=== PATIENT | male | born 1955 | race Caucasian/White ===

== ENCOUNTER 2025-01-24 16:53 | Inpatient (IN) | payer MEDICARE ==
[~2025-01-24] VITALS: Ht 172.7 cm; Wt 78.6 kg
[2025-01-24 18:43] LABS: BASOPHILS % (AUTO) 0.2 % (0-1); EOSINOPHILS % (AUTO) 0.6 % (0-6); HEMATOCRIT 45.4 % (42.0-52.0); HEMOGLOBIN 15.5 g/dl (14.0-17.9); LYMPHOCYTES # (AUTO) 0.6 X10'3 (1.1-4.8); LYMPHOCYTES % (AUTO) 9.1 % (21-51); MEAN CORPUSCULAR HEMOGLOBIN 30.1 PG (27.0-31.0); MEAN CORPUSCULAR HGB CONC 34.3 g/dL (33.0-36.5); MEAN CORPUSCULAR VOLUME 87.8 FL (78-98); MEAN PLATELET VOLUME 8.8 FL (7.4-10.4); MONOCYTES # (AUTO) 0.9 X10'3 (0-0.9); MONOCYTES % (AUTO) 14.2 % (2-12); NEUTROPHILS # (AUTO) 5.1 X10'3 (1.8-7.7); NEUTROPHILS % (AUTO) 75.9 % (42-75); PLATELET COUNT 132 X10'3 (140-440); RED BLOOD COUNT 5.16 X10'6 (4.70-6.10); RED CELL DISTRIBUTION WIDTH 14.8 % (11.5-14.5); WHITE BLOOD COUNT 6.7 X10'3 (4.5-11.0)
[2025-01-24 18:54] LABS: ALANINE AMINOTRANSFERASE 191 U/L (12-78); ALKALINE PHOSPHATASE 117 IU/L (46-116); ANION GAP 7 (8-16); ASPARTATE AMINO TRANSFERASE 100 U/L (10-37); BILIRUBIN,TOTAL 13.1 MG/DL (0.1-1.0); BLOOD UREA NITROGEN 13 MG/DL (7-18); BUN/CREATININE RATIO 13.7 (10.0-20.0); CALCIUM 8.6 MG/DL (8.5-10.1); CHLORIDE 107 MMOL/L (99-107); CREATININE 0.95 MG/DL (0.60-1.10); GLUCOSE 104 MG/DL (70-104); LIPASE 48 U/L (16-77); SODIUM 143 MMOL/L (135-145); TOTAL CARBON DIOXIDE 28.8 MMOL/L (24-32); eCRCL 69 ML/MIN; eGFR 79 ML/MIN
[2025-01-24 18:56] LABS: POTASSIUM 3.5 MMOL/L (3.5-5.1)
[2025-01-24] MEDS ORDERED: magnesium Cl slow-release 64mg tablet PO PRN (19:35)
[2025-01-24] MEDS ORDERED: HYDROmorphone inj. 0.5 MG/0.5 ML DISP.SYRIN IV PRN (19:35)
[2025-01-24] MEDS ORDERED: magnesium sulf-water 4G/100mL 100 ML IV PRN (19:35)
[2025-01-24] MEDS ORDERED: magnesium hydroxide 30ml (MOM) UD suspension PO PRN (19:35)
[2025-01-24] MEDS ORDERED: morphine 2 MG/ML inj. syringe IV PRN ×2 (19:35)
[2025-01-24] MEDS ORDERED: potassium Cl 40MEQ/1/2NS 520ml 520 ML IV PRN (19:35)
[2025-01-24] MEDS ORDERED: acetaminophen 325mg tablet PO PRN (19:35)
[2025-01-24] MEDS ORDERED: magnesium sulf-water 2g/50mL 50 ML IV PRN (19:35)
[2025-01-24] MEDS ORDERED: HYDROcodone/acetaminophen 5mg/325mg tablet PO PRN (19:35)
[2025-01-24] MEDS ORDERED: mag hydrox/Alum hydrox/simeth 30ml oral suspension PO PRN (19:35)
[2025-01-24] MEDS ORDERED: HYDROcodone/acetaminophen 10/325mg tab PO PRN (19:35)
[2025-01-24] MEDS ORDERED: bisacodyl 10mg suppository rectal RC PRN (19:35)
[2025-01-24] MEDS ORDERED: potassium Cl 20 mEq SR tablet PO PRN (19:35)
[2025-01-24] MEDS ORDERED: ESOM40CA66 PO (19:39)
[2025-01-24] MEDS ORDERED: FENO145T38 PO (19:39)
[2025-01-24] MEDS ORDERED: ATEN-169 PO (19:39)
[2025-01-24] MEDS ORDERED: LOSA50TA64 PO (19:39)
[2025-01-24 19:58] LABS: APTT 26 SECONDS (22-32); INR 1.3 INR; PROTHROMBIN TIME 13.1 SECONDS (9.0-12.0)
[2025-01-24] MEDS: docusate sod 100mg capsule PO SCH (20:00)
[2025-01-24] MEDS: heparin, porcine 5000 units/ml vial SQ SCH (20:00)
[2025-01-24] MEDS: K and/or MAG REPLACEMENT MC SCH (20:00)
[2025-01-24 20:05] LABS: PRO BRAIN NATRIURETIC PEPTIDE 655 PG/ML (0-125)
[2025-01-24] MEDS: normal saline 1000ml 1,000 ML IV SCH (22:15)
[2025-01-24 23:20] VITALS: BP 129/99; PULSE 68; RESP 18; TEMP 97.8; O2SAT 97
[2025-01-25] VITALS (17 sets, daily range): BP systolic 117–147; BP diastolic 61–79; PULSE 50–69; RESP 10–20; TEMP 97.5–98.1; O2SAT 92–98
[2025-01-25 06:50] LABS: BASOPHILS % (AUTO) 0.5 % (0-1); EOSINOPHILS # (AUTO) 0.1 X10'3 (0-0.9); EOSINOPHILS % (AUTO) 2.2 % (0-6); HEMATOCRIT 40.4 % (42.0-52.0); HEMOGLOBIN 13.8 g/dl (14.0-17.9); LYMPHOCYTES # (AUTO) 0.5 X10'3 (1.1-4.8); LYMPHOCYTES % (AUTO) 9.7 % (21-51); MEAN CORPUSCULAR HEMOGLOBIN 30.1 PG (27.0-31.0); MEAN CORPUSCULAR HGB CONC 34.3 g/dL (33.0-36.5); MEAN CORPUSCULAR VOLUME 87.9 FL (78-98); MEAN PLATELET VOLUME 9.2 FL (7.4-10.4); MONOCYTES # (AUTO) 0.9 X10'3 (0-0.9); MONOCYTES % (AUTO) 16.9 % (2-12); NEUTROPHILS % (AUTO) 70.7 % (42-75); PLATELET COUNT 123 X10'3 (140-440); RED BLOOD COUNT 4.59 X10'6 (4.70-6.10); RED CELL DISTRIBUTION WIDTH 14.5 % (11.5-14.5); WHITE BLOOD COUNT 5.6 X10'3 (4.5-11.0)
[2025-01-25 07:41] LABS: ALANINE AMINOTRANSFERASE 153 U/L (12-78); ALBUMIN 2.7 G/DL (3.4-5.0); ALKALINE PHOSPHATASE 108 IU/L (46-116); ANION GAP 12 (8-16); ASPARTATE AMINO TRANSFERASE 78 U/L (10-37); BILIRUBIN,TOTAL 11.4 MG/DL (0.1-1.0); BLOOD UREA NITROGEN 15 MG/DL (7-18); BUN/CREATININE RATIO 18.1 (10.0-20.0); CALCIUM 8.2 MG/DL (8.5-10.1); CHLORIDE 110 MMOL/L (99-107); CREATININE 0.83 MG/DL (0.60-1.10); GLUCOSE 92 MG/DL (70-104); HDL CHOLESTEROL 13 MG/DL (35-60); LDL CHOLESTEROL 69 MG/DL (50-100); MAGNESIUM 1.8 MG/DL (1.5-2.4); SODIUM 147 MMOL/L (135-145); TOTAL CARBON DIOXIDE 25.2 MMOL/L (24-32); eCRCL 81 ML/MIN; eGFR > 90 ML/MIN
[2025-01-25 07:50] LABS: ALBUMIN/GLOBULIN RATIO 1.2 (1.1-1.5); BILIRUBIN,DIRECT 9.5 MG/DL (0-0.3); CHOLESTEROL 117 MG/DL (0-200); POTASSIUM 3.4 MMOL/L (3.5-5.1); TOTAL PROTEIN 4.9 G/DL (6.4-8.2); TRIGLYCERIDES 220 MG/DL (20-135)
[2025-01-25] MEDS: losartan 50mg tablet PO SCH ×2 (08:00→22:01)
[2025-01-25 08:45] LABS: TOTAL CELLS COUNTED 100
[2025-01-25 08:46] LABS: PLATELET ESTIMATE NORMAL
[2025-01-25] MEDS: CefTRIAXone/D5W-Rocephin 1gm 50 ML IV SCH (09:43)
[2025-01-25] MEDS: atenolol 50mg tablet PO SCH (09:44)
[2025-01-25] MEDS: fenofibrate 145mg tablet PO SCH (09:45)
[2025-01-25] MEDS: pantoprazole 40mg Tablet.DR PO SCH (09:45)
[2025-01-25] MEDS: potassium Cl 20 mEq SR tablet PO PRN (11:27)
[2025-01-25] MEDS ORDERED: iohexol 300mg/ml 100ml inj. ONE (14:09)
[2025-01-25] MEDS ORDERED: glucagon, human recombinant 1mg kit ONE (14:09)
[2025-01-25] MEDS ORDERED: LIDOcaine 2% Viscous 15ml cup ONE (14:09)
[2025-01-25] MEDS ORDERED: fentaNYL/PF 50MCG/1 ML 2ML syringe ONE ×2 (17:56→18:54)
[2025-01-25] MEDS ORDERED: MIDAZolam 1 MG/ML 5ML VIAL ONE (17:57)
[2025-01-26] VITALS (7 sets, daily range): BP systolic 104–128; BP diastolic 51–69; PULSE 44–65; RESP 12–18; TEMP 97.4–98.1; O2SAT 96–99
[2025-01-26 06:19] LABS: BASOPHILS % (AUTO) 0.3 % (0-1); EOSINOPHILS # (AUTO) 0.1 X10'3 (0-0.9); EOSINOPHILS % (AUTO) 1.1 % (0-6); HEMATOCRIT 37.9 % (42.0-52.0); HEMOGLOBIN 12.9 g/dl (14.0-17.9); LYMPHOCYTES # (AUTO) 0.7 X10'3 (1.1-4.8); LYMPHOCYTES % (AUTO) 12.3 % (21-51); MEAN CORPUSCULAR HEMOGLOBIN 30.1 PG (27.0-31.0); MEAN CORPUSCULAR VOLUME 88.3 FL (78-98); MONOCYTES # (AUTO) 0.8 X10'3 (0-0.9); NEUTROPHILS # (AUTO) 4.3 X10'3 (1.8-7.7); NEUTROPHILS % (AUTO) 73.3 % (42-75); PLATELET COUNT 128 X10'3 (140-440); RED BLOOD COUNT 4.29 X10'6 (4.70-6.10); WHITE BLOOD COUNT 5.8 X10'3 (4.5-11.0)
[2025-01-26 06:58] LABS: ALANINE AMINOTRANSFERASE 140 U/L (12-78); ALBUMIN 2.3 G/DL (3.4-5.0); ALKALINE PHOSPHATASE 117 IU/L (46-116); ANION GAP 9 (8-16); ASPARTATE AMINO TRANSFERASE 97 U/L (10-37); BILIRUBIN,TOTAL 9.2 MG/DL (0.1-1.0); BLOOD UREA NITROGEN 18 MG/DL (7-18); BUN/CREATININE RATIO 18.9 (10.0-20.0); CALCIUM 8.2 MG/DL (8.5-10.1); CHLORIDE 110 MMOL/L (99-107); CREATININE 0.95 MG/DL (0.60-1.10); GLUCOSE 109 MG/DL (70-104); MAGNESIUM 1.8 MG/DL (1.5-2.4); SODIUM 144 MMOL/L (135-145); TOTAL CARBON DIOXIDE 24.9 MMOL/L (24-32); eCRCL 71 ML/MIN; eGFR 79 ML/MIN
[2025-01-26 07:04] LABS: ALBUMIN/GLOBULIN RATIO 0.9 (1.1-1.5); POTASSIUM 3.8 MMOL/L (3.5-5.1)
[2025-01-26] MEDS: piperacillin/tazo 4.5gm/100ml 100 ML IV SCH (15:55)
[2025-01-26] MEDS: heparin, porcine 5000 units/ml vial SQ SCH (20:44)
[2025-01-27] VITALS (30 sets, daily range): BP systolic 115–184; BP diastolic 65–96; PULSE 49–98; RESP 12–26; TEMP 97.4–98.3; O2SAT 92–100
[2025-01-27 06:56] LABS: BASOPHILS % (AUTO) 0.5 % (0-1); EOSINOPHILS # (AUTO) 0.1 X10'3 (0-0.9); EOSINOPHILS % (AUTO) 0.6 % (0-6); HEMATOCRIT 38.5 % (42.0-52.0); HEMOGLOBIN 13.3 g/dl (14.0-17.9); LYMPHOCYTES # (AUTO) 0.7 X10'3 (1.1-4.8); LYMPHOCYTES % (AUTO) 8.3 % (21-51); MEAN CORPUSCULAR HEMOGLOBIN 30.1 PG (27.0-31.0); MEAN CORPUSCULAR HGB CONC 34.7 g/dL (33.0-36.5); MEAN PLATELET VOLUME 9.1 FL (7.4-10.4); MONOCYTES # (AUTO) 0.9 X10'3 (0-0.9); MONOCYTES % (AUTO) 10.6 % (2-12); NEUTROPHILS # (AUTO) 6.7 X10'3 (1.8-7.7); PLATELET COUNT 162 X10'3 (140-440); RED BLOOD COUNT 4.42 X10'6 (4.70-6.10); RED CELL DISTRIBUTION WIDTH 14.8 % (11.5-14.5); WHITE BLOOD COUNT 8.3 X10'3 (4.5-11.0)
[2025-01-27 07:06] LABS: ALANINE AMINOTRANSFERASE 169 U/L (12-78); ALBUMIN 2.5 G/DL (3.4-5.0); ALKALINE PHOSPHATASE 138 IU/L (46-116); ANION GAP 11 (8-16); ASPARTATE AMINO TRANSFERASE 142 U/L (10-37); BILIRUBIN,TOTAL 14.7 MG/DL (0.1-1.0); BLOOD UREA NITROGEN 12 MG/DL (7-18); BUN/CREATININE RATIO 14.5 (10.0-20.0); CALCIUM 8.2 MG/DL (8.5-10.1); CHLORIDE 106 MMOL/L (99-107); CREATININE 0.83 MG/DL (0.60-1.10); GLUCOSE 109 MG/DL (70-104); MAGNESIUM 1.5 MG/DL (1.5-2.4); SODIUM 139 MMOL/L (135-145); TOTAL CARBON DIOXIDE 21.9 MMOL/L (24-32); eCRCL 81 ML/MIN; eGFR > 90 ML/MIN
[2025-01-27 07:17] LABS: ALBUMIN/GLOBULIN RATIO 0.9 (1.1-1.5); POTASSIUM 3.4 MMOL/L (3.5-5.1); TOTAL PROTEIN 5.3 G/DL (6.4-8.2)
[2025-01-27] MEDS ORDERED: TEST50AU SUBCUT (08:01)
[2025-01-27] MEDS: ondansetron/PF 4mg/2ml inj IV PRN (09:02)
[2025-01-27] MEDS ORDERED: iohexol 300 MG/1 ML 50ml polymer ONE (13:55)
[2025-01-27] MEDS ORDERED: glucagon, human recombinant 1mg kit ONE (13:55)
[2025-01-27] MEDS ORDERED: iohexol 300mg/ml 100ml inj. ONE (13:56)
[2025-01-27] MEDS ORDERED: meperidine/PF 25mg/ml syringe IV PRN ×4 (15:10→17:05)
[2025-01-27] MEDS ORDERED: morphine 4 MG/ML inj SYRINge IV PRN ×2 (15:10→17:05)
[2025-01-27] MEDS ORDERED: ondansetron/PF 4mg/2ml inj IV PRN ×2 (15:10→17:05)
[2025-01-27] MEDS ORDERED: HYDROmorphone/PF 0.2 MG/ML SYRINGE IV PRN ×2 (15:10)
[2025-01-27] MEDS ORDERED: propofol inj 20 ML IV ONE (15:17)
[2025-01-27] MEDS ORDERED: rocuronium 10mg/ml inj IV ONE (15:19)
[2025-01-27] MEDS ORDERED: sevoflurane 250ml liquid IH ONE (16:05)
[2025-01-27] MEDS ORDERED: fentaNYL/PF 50MCG/1 ML 2ML syringe ONE (16:06)
[2025-01-27] MEDS ORDERED: midazolam 1 mg/ML 2ml injection ONE (16:06)
[2025-01-27] MEDS ORDERED: dexamethasone sod phosphate 4mg/ml inj. ONE (17:02)
[2025-01-27] MEDS ORDERED: ondansetron/PF 4mg/2ml inj ONE (17:02)
[2025-01-27] MEDS ORDERED: ringers solution, lacted 1,000 ML IV SCH (17:05)
[2025-01-27] MEDS ORDERED: morphine 2 MG/ML inj. syringe IV PRN (17:05)
[2025-01-27] MEDS ORDERED: proCHLORperazine 10 MG/2 ml inj IV PRN (17:05)
[2025-01-27] MEDS ORDERED: enalaprilat 1.25mg/ml 2ml vial IV PRN (17:05)
[2025-01-27] MEDS ORDERED: labetalol 20mg/4ml (5mg/ml) syringe IV PRN (17:05)
[2025-01-27] MEDS ORDERED: glycopyrrolate 0.2mg/ml inj ONE (17:45)
[2025-01-27] MEDS: ipratropium/albuterol 3ml nebule NEB ONE (18:20)
[2025-01-27] MEDS: morphine 2 MG/ML inj. syringe IV PRN (18:32)
[2025-01-27] MEDS: racepinephrine 11.25mg/0.5ml nebule IH ONE (18:35)
[2025-01-27] MEDS: labetalol 20mg/4ml (5mg/ml) syringe IV PRN (18:54)
[2025-01-27] MEDS: ringers solution, lacted 1,000 ML IV SCH (21:39)
[2025-01-28 02:00] VITALS: BP 139/79; PULSE 70; RESP 20; TEMP 98.3; O2SAT 95
[2025-01-28 06:19] LABS: BASOPHILS % (AUTO) 0.5 % (0-1); EOSINOPHILS % (AUTO) 0 % (0-6); HEMATOCRIT 36.9 % (42.0-52.0); HEMOGLOBIN 12.7 g/dl (14.0-17.9); LYMPHOCYTES # (AUTO) 0.8 X10'3 (1.1-4.8); LYMPHOCYTES % (AUTO) 8.6 % (21-51); MEAN CORPUSCULAR HEMOGLOBIN 30.2 PG (27.0-31.0); MEAN CORPUSCULAR HGB CONC 34.5 g/dL (33.0-36.5); MEAN CORPUSCULAR VOLUME 87.5 FL (78-98); MEAN PLATELET VOLUME 9.5 FL (7.4-10.4); MONOCYTES # (AUTO) 0.4 X10'3 (0-0.9); MONOCYTES % (AUTO) 4.1 % (2-12); NEUTROPHILS # (AUTO) 8.5 X10'3 (1.8-7.7); NEUTROPHILS % (AUTO) 86.8 % (42-75); PLATELET COUNT 186 X10'3 (140-440); RED BLOOD COUNT 4.22 X10'6 (4.70-6.10); RED CELL DISTRIBUTION WIDTH 15.1 % (11.5-14.5); WHITE BLOOD COUNT 9.8 X10'3 (4.5-11.0)
[2025-01-28 06:27] LABS: ALANINE AMINOTRANSFERASE 136 U/L (12-78); ALBUMIN 2.3 G/DL (3.4-5.0); ALKALINE PHOSPHATASE 127 IU/L (46-116); ANION GAP 9 (8-16); ASPARTATE AMINO TRANSFERASE 86 U/L (10-37); BILIRUBIN,TOTAL 10.5 MG/DL (0.1-1.0); BLOOD UREA NITROGEN 10 MG/DL (7-18); BUN/CREATININE RATIO 9.3 (10.0-20.0); CALCIUM 8.2 MG/DL (8.5-10.1); CHLORIDE 108 MMOL/L (99-107); CREATININE 1.08 MG/DL (0.60-1.10); GLUCOSE 178 MG/DL (70-104); MAGNESIUM 1.7 MG/DL (1.5-2.4); SODIUM 142 MMOL/L (135-145); TOTAL CARBON DIOXIDE 24.9 MMOL/L (24-32); eCRCL 62 ML/MIN; eGFR 68 ML/MIN
[2025-01-28 06:28] LABS: ALBUMIN/GLOBULIN RATIO 0.8 (1.1-1.5); POTASSIUM 3.8 MMOL/L (3.5-5.1); TOTAL PROTEIN 5.3 G/DL (6.4-8.2)
[2025-01-28 06:40] VITALS: BP 106/46; PULSE 61; RESP 20; TEMP 98.2; O2SAT 98
[2025-01-28] MEDS: piperacillin/tazo 4.5gm/100ml 100 ML IV SCH (07:53)
[2025-01-28 08:00] VITALS: RESP 16; RESP 18; O2SAT 96
[2025-01-28] MEDS: lactose-reduced food (Ensure Enlive) - 237ml bottle PO SCH (08:00)
[2025-01-28 10:00] VITALS: BP 140/60; PULSE 62; RESP 16; TEMP 97.5; O2SAT 97
[2025-01-28 18:00] VITALS: BP 145/58; PULSE 69; RESP 18; TEMP 98.3; O2SAT 97
[2025-01-28 22:00] VITALS: BP 158/88; PULSE 63; RESP 16; TEMP 98; O2SAT 96
[2025-01-29 04:20] LABS: BASOPHILS # (AUTO) 0.1 X10'3 (0-0.2); BASOPHILS % (AUTO) 0.7 % (0-1); EOSINOPHILS % (AUTO) 0.2 % (0-6); HEMATOCRIT 36.1 % (42.0-52.0); HEMOGLOBIN 12.3 g/dl (14.0-17.9); LYMPHOCYTES # (AUTO) 1.3 X10'3 (1.1-4.8); LYMPHOCYTES % (AUTO) 9.7 % (21-51); MEAN CORPUSCULAR HGB CONC 34.2 g/dL (33.0-36.5); MEAN CORPUSCULAR VOLUME 87.7 FL (78-98); MEAN PLATELET VOLUME 9.1 FL (7.4-10.4); MONOCYTES # (AUTO) 0.8 X10'3 (0-0.9); MONOCYTES % (AUTO) 6.4 % (2-12); PLATELET COUNT 216 X10'3 (140-440); RED BLOOD COUNT 4.12 X10'6 (4.70-6.10); RED CELL DISTRIBUTION WIDTH 15.5 % (11.5-14.5); WHITE BLOOD COUNT 13.2 X10'3 (4.5-11.0)
[2025-01-29 04:43] LABS: ALANINE AMINOTRANSFERASE 108 U/L (12-78); ALBUMIN 2.4 G/DL (3.4-5.0); ALKALINE PHOSPHATASE 117 IU/L (46-116); ANION GAP 9 (8-16); ASPARTATE AMINO TRANSFERASE 59 U/L (10-37); BILIRUBIN,TOTAL 6.3 MG/DL (0.1-1.0); BLOOD UREA NITROGEN 13 MG/DL (7-18); BUN/CREATININE RATIO 12.5 (10.0-20.0); CALCIUM 8.2 MG/DL (8.5-10.1); CHLORIDE 108 MMOL/L (99-107); CREATININE 1.04 MG/DL (0.60-1.10); GLUCOSE 106 MG/DL (70-104); POTASSIUM 3.8 MMOL/L (3.5-5.1); SODIUM 143 MMOL/L (135-145); TOTAL CARBON DIOXIDE 26.1 MMOL/L (24-32); eCRCL 65 ML/MIN; eGFR 71 ML/MIN
[2025-01-29 04:51] LABS: ALBUMIN/GLOBULIN RATIO 0.8 (1.1-1.5); TOTAL PROTEIN 5.4 G/DL (6.4-8.2)
[2025-01-29] MEDS ORDERED: albuterol 2.5 MG/3 ML nebule NEB PRN (05:50)
[2025-01-29 06:00] VITALS: BP 140/85; PULSE 57; RESP 20; TEMP 98.4; O2SAT 94
[2025-01-29 08:10] VITALS: BP_SYST 140; PULSE 57
[2025-01-29] MEDS ORDERED: ONDA-243 PO (10:34)
[2025-01-29] MEDS ORDERED: SACC250C PO (10:34)
[2025-01-29] MEDS ORDERED: AMOX-580 PO (10:34)
[2025-01-29] MEDS ORDERED: amox tr/potassium clavulanate 875/125mg TAB PO SCH (17:30)
== END 2025-01-29 14:30 | disposition home or self-care (01) | DRG 446 ==
LOC: ER 16:55 → ED HOLD 19:40 → EDBEDREQ 22:40 → PCU 3S 23:03 → SUR 3N 01-27 19:35
PROVIDERS: ADMIT Internal Medicine Critical Care Medicine; ATTEND Family Medicine
PROC: 0FJB8ZZ Inspection of Hepatobiliary Duct, Via Natural or Artificial Opening Endoscopic (ICD-10-PCS; 2025-01-25)
PROC: 0F798DZ Dilation of Common Bile Duct with Intraluminal Device, Via Natural or Artificial Opening Endoscopic (ICD-10-PCS; principal; 2025-01-27 16:05)
DX: K80.63 Calculus of gallbladder and bile duct with acute cholecystitis with obstruction (principal); K21.9 Gastro-esophageal reflux disease without esophagitis; E87.6 Hypokalemia; R00.1 Bradycardia, unspecified; E78.5 Hyperlipidemia, unspecified; I10 Essential (primary) hypertension; J45.909 Unspecified asthma, uncomplicated; Z79.899 Other long term (current) drug therapy
CPT/HCPCS: 36415; 43260; 71045; 74181; 76700; 80053; 80061; 82140; 82248; 82948; 83605; 83690; 83735; 83880; 84145; 85007; 85025; 85610; 85730; 87040; 87081; 94640; 94760; 97116; 97161; 97530; 99152; 99153; 99291; A4615; A4618; A4620; A6258; A6402; C1769; C2625; G0378; J0696; J1100; J1610; J1644; J2003; J2250; J2270; J2405; J2543; J2704; J3010; J3490; J7030; J7120; Q9967

== ENCOUNTER 2025-03-06 07:52 | Day surgery (SDC) | payer MEDICARE ==
[~2025-03-06] VITALS: Ht 172.7 cm; Wt 76.8 kg
[2025-03-06] VITALS (8 sets, daily range): BP systolic 105–154; BP diastolic 59–77; PULSE 50–62; RESP 10–15; O2SAT 97–100
[~2025-03-06 07:52] MED LIST: ATEN-169 PO; ESOM40CA66 PO; FENO145T38 PO; LOSA50TA64 PO; ONDA-243 PO; SACC250C PO; TEST200V6 IM
[2025-03-06] MEDS ORDERED: proCHLORperazine 10 MG/2 ml inj IV PRN (09:45)
[2025-03-06] MEDS ORDERED: labetalol 20mg/4ml (5mg/ml) syringe IV PRN (09:45)
[2025-03-06] MEDS ORDERED: morphine 4 MG/ML inj SYRINge IV PRN (09:45)
[2025-03-06] MEDS ORDERED: meperidine/PF 25mg/ml syringe IV PRN (09:45)
[2025-03-06] MEDS ORDERED: ringers solution, lacted 1,000 ML IV SCH (09:45)
[2025-03-06] MEDS ORDERED: morphine 2 MG/ML inj. syringe IV PRN (09:45)
[2025-03-06] MEDS ORDERED: acetaminophen 1,000mg/100ml IV 100 ML IV PRN (09:45)
[2025-03-06] MEDS ORDERED: HYDROmorphone/PF 0.2 MG/ML SYRINGE IV PRN ×2 (09:45)
[2025-03-06] MEDS ORDERED: hydrALAZINE 20mg/ml inj. IV PRN (09:45)
[2025-03-06] MEDS ORDERED: ondansetron/PF 4mg/2ml inj IV PRN (09:45)
[2025-03-06] MEDS ORDERED: fentaNYL/PF 50MCG/1 ML 2ML syringe ONE (10:13)
[2025-03-06] MEDS ORDERED: sevoflurane 250ml liquid IH ONE (10:22)
[2025-03-06] MEDS ORDERED: iohexol 300mg/ml 100ml inj. ONE ×2 (10:22→10:28)
[2025-03-06] MEDS ORDERED: levoFLOXACIN-Levaquin 500mg/D5 100 ML IV ONE (10:28)
[2025-03-06] MEDS ORDERED: propofol inj 20 ML IV ONE (10:33)
[2025-03-06] MEDS ORDERED: LIDOcaine 2% (20mg/ml) 5ml vial ONE (10:33)
[2025-03-06] MEDS ORDERED: ondansetron/PF 4mg/2ml inj ONE (10:33)
[2025-03-06] MEDS ORDERED: midazolam 1 mg/ML 2ml injection ONE (10:33)
== END 2025-03-06 12:28 | disposition home or self-care (01) ==
LOC: GI LAB 07:52
PROVIDERS: ATTEND Internal Medicine Gastroenterology
DX: K80.50 Calculus of bile duct without cholangitis or cholecystitis without obstruction (principal); I10 Essential (primary) hypertension; E78.5 Hyperlipidemia, unspecified; Z79.899 Other long term (current) drug therapy
CPT/HCPCS: 43264; 43274; 74328; C1769; C1889; C2625; J0131; J0360; J0780; J1100; J1171; J1956; J2003; J2175; J2250; J2270; J2405; J2704; J3010; J3490; J7030; J7120; Q9967; Z7512; Z7610